=== PATIENT | female | born 2000 | race Caucasian/White ===

== ENCOUNTER 2022-05-02 17:03 | Emergency (ER) | payer OTHER ==
[~2022-05-02] VITALS: Ht 170.2 cm; Wt 87.0 kg
[2022-05-02 19:46] LABS: CHLORIDE 107 mEq/L (98-107)
[2022-05-02 19:49] LABS: BASOPHILS % 0.5 % (0.0-2.0); EOSINOPHILS % 0.9 % (0.0-5.0); HEMATOCRIT. 41.8 % (36.0-48.0); HEMOGLOBIN. 13.8 g/dL (12.0-16.0); LYMPHOCYTES % 20.6 % (20.0-50.0); MEAN CORPUSCULAR HEMOGLOBIN 31.4 pg (28.0-32.0); MEAN CORPUSCULAR VOLUME 95.2 fL (81.0-99.0); MEAN PLATELET VOLUME 7.5 fl (7.4-10.4); MONOCYTES % 9.6 % (2.0-8.0); NEUTROPHILS % 68.4 % (40.0-76.0); PLATELET 320 x1000/uL (130-400); RED BLOOD CELL COUNT 4.39 mill/uL (4.2-5.4); RED CELL DISTRIBUTION WIDTH 13.3 % (11.6-14.6)
[2022-05-02 20:09] LABS: B-HCG QUANTITATIVE 31711 mIU/mL (<3)
[2022-05-02 20:24] LABS: CLARITY URINE CLEAR (CLEAR); COLOR URINE YELLOW (YELLOW); KETONES URINE NEGATIVE (NEGATIVE); LEUKOCYTE ESTERASE URINE NEGATIVE (NEGATIVE); NITRITE URINE NEGATIVE (NEGATIVE); OCCULT BLOOD URINE TRACE (NEGATIVE); PH URINE 6.5 (4.5-8.0); PROTEIN URINE NEGATIVE (NEGATIVE)
[2022-05-02 22:30] VITALS: BP 140/75
== END 2022-05-02 22:36 | disposition home or self-care (01) ==
LOC: ER 17:03
DX: O20.0 Threatened abortion (principal); Z3A.01 Less than 8 weeks gestation of pregnancy; Z88.0 Allergy status to penicillin; O34.81 Maternal care for other abnormalities of pelvic organs, first trimester; N83.291 Other ovarian cyst, right side
CPT/HCPCS: 36415; 76801; 80048; 81003; 81025; 84702; 85025; 86850; 86900; 99284

== ENCOUNTER 2022-05-18 23:51 | Emergency (ER) | payer OTHER ==
[~2022-05-18] VITALS: Ht 170.2 cm; Wt 87.0 kg
[2022-05-19 01:26] LABS: BASOPHILS % 0.3 % (0.0-2.0); EOSINOPHILS % 1.5 % (0.0-5.0); HEMATOCRIT. 41.4 % (36.0-48.0); HEMOGLOBIN. 14.3 g/dL (12.0-16.0); LYMPHOCYTES % 12.6 % (20.0-50.0); MEAN CORPUSCULAR HEMOGLOBIN 32.3 pg (28.0-32.0); MEAN CORPUSCULAR VOLUME 93.7 fL (81.0-99.0); MEAN PLATELET VOLUME 7.6 fl (7.4-10.4); NEUTROPHILS % 74.6 % (40.0-76.0); PLATELET 297 x1000/uL (130-400); RED BLOOD CELL COUNT 4.42 mill/uL (4.2-5.4); RED CELL DISTRIBUTION WIDTH 13.1 % (11.6-14.6)
[2022-05-19 01:35] LABS: CHLORIDE 105 mEq/L (98-107)
[2022-05-19 02:00] LABS: B-HCG QUANTITATIVE 66891 mIU/mL (<3)
[2022-05-19 02:09] LABS: CLARITY URINE CLEAR (CLEAR); COLOR URINE YELLOW (YELLOW); KETONES URINE NEGATIVE (NEGATIVE); LEUKOCYTE ESTERASE URINE NEGATIVE (NEGATIVE); NITRITE URINE NEGATIVE (NEGATIVE); OCCULT BLOOD URINE NEGATIVE (NEGATIVE); PH URINE 6.5 (4.5-8.0); PROTEIN URINE NEGATIVE (NEGATIVE); SPECIFIC GRAVITY URINE 1.009 (1.005-1.030)
[2022-05-19] MEDS ORDERED: RHO(D) IMMUNE GLOBULIN 300 MCG/SYR IM ONE (02:30)
[2022-05-19 04:35] VITALS: BP 123/78
== END 2022-05-19 04:35 | disposition home or self-care (01) ==
LOC: ER 23:51
DX: O26.851 Spotting complicating pregnancy, first trimester (principal); O36.0910 Maternal care for other rhesus isoimmunization, first trimester, not applicable or unspecified; O99.611 Diseases of the digestive system complicating pregnancy, first trimester; K45.8 Other specified abdominal hernia without obstruction or gangrene; Z3A.08 8 weeks gestation of pregnancy
CPT/HCPCS: 36415; 76801; 80048; 81003; 84702; 85025; 86850; 86900; 90384; 96372; 99285; J2791

== ENCOUNTER 2023-05-17 21:18 | Emergency (ER) | payer OTHER ==
[~2023-05-17] VITALS: Ht 170.2 cm; Wt 95.0 kg
[2023-05-17 21:28] VITALS: O2SAT 100
[2023-05-17] MEDS ORDERED: IBUPROFEN 600MG TABLET PO ONE (22:45)
[2023-05-17 22:59] LABS: BASOPHILS % 0.7 % (0.0-2.0); HEMATOCRIT. 39.2 % (36.0-48.0); HEMOGLOBIN. 13.6 g/dL (12.0-16.0); LYMPHOCYTES % 36.9 % (20.0-50.0); MEAN CORPUSCULAR HEMOGLOBIN 31.2 pg (28.0-32.0); MEAN CORPUSCULAR VOLUME 89.7 fL (81.0-99.0); MEAN PLATELET VOLUME 7.6 fl (7.4-10.4); MONOCYTES % 8.6 % (2.0-8.0); NEUTROPHILS % 51.8 % (40.0-76.0); PLATELET 333 x1000/uL (130-400); RED BLOOD CELL COUNT 4.37 mill/uL (4.2-5.4); RED CELL DISTRIBUTION WIDTH 13.7 % (11.6-14.6)
[2023-05-17 23:03] LABS: CHLORIDE 106 mEq/L (98-107)
[2023-05-17 23:50] VITALS: BP 118/80; PULSE 80; RESP 21; TEMP 98.4
== END 2023-05-17 23:51 | disposition home or self-care (01) ==
LOC: ER 21:18
DX: R07.89 Other chest pain (principal); Z98.890 Other specified postprocedural states; Z88.0 Allergy status to penicillin
CPT/HCPCS: 36415; 71045; 80053; 84484; 85025; 99284

== ENCOUNTER 2023-11-25 19:37 | Emergency (ER) | payer MEDICAID, OTHER ==
[~2023-11-25] VITALS: Ht 170.2 cm; Wt 104.0 kg
[2023-11-25 20:44] VITALS: TEMP 98; O2SAT 100
[2023-11-25] MEDS: SODIUM CHLORIDE 0.9% 1,000 ML IV ONE (21:19)
[2023-11-25] MEDS: METOCLOPRAMIDE HCL 10MG/2ML VIAL IV ONE (21:20)
[2023-11-25 21:37] LABS: CLARITY URINE CLOUDY (CLEAR); COLOR URINE YELLOW (YELLOW); GLUCOSE URINE NEGATIVE (NEGATIVE); KETONES URINE TRACE (NEGATIVE); LEUKOCYTE ESTERASE URINE NEGATIVE (NEGATIVE); NITRITE URINE NEGATIVE (NEGATIVE); OCCULT BLOOD URINE NEGATIVE (NEGATIVE); PROTEIN URINE NEGATIVE (NEGATIVE); SPECIFIC GRAVITY URINE 1.026 (1.005-1.030); UROBILINOGEN URINE 0.2 E.U./dL (0.2-1.0)
[2023-11-25 21:42] LABS: BASOPHILS % 0.5 % (0.0-2.0); EOSINOPHILS % 0.9 % (0.0-5.0); HEMATOCRIT. 40.9 % (36.0-48.0); HEMOGLOBIN. 14.4 g/dL (12.0-16.0); LYMPHOCYTES % 31.2 % (20.0-50.0); MEAN CORPUSCULAR HEMOGLOBIN 31.7 pg (28.0-32.0); MEAN CORPUSCULAR HGB CONC 35.3 g/dL (31.0-37.0); MEAN CORPUSCULAR VOLUME 89.7 fL (81.0-99.0); MEAN PLATELET VOLUME 7.7 fl (7.4-10.4); MONOCYTES % 9.3 % (2.0-8.0); NEUTROPHILS % 58.1 % (40.0-76.0); PLATELET 340 x1000/uL (130-400); RED BLOOD CELL COUNT 4.55 mill/uL (4.2-5.4); RED CELL DISTRIBUTION WIDTH 13.4 % (11.6-14.6); WHITE BLOOD COUNT 10.7 x1000/uL (4.5-11.0)
[2023-11-25 21:53] LABS: BACTERIA URINE 1+; RBC URINE 0-2 /hpf (0-2); SQUAMOUS EPITHELIAL CELL URINE 2+ /lpf (RARE/1+); WBC URINE 0-2 /hpf (0-2)
[2023-11-25 22:06] LABS: ALANINE AMINOTRANSFERASE 21 IU/L (10-49); ALBUMIN 4.4 g/dL (3.2-4.8); ASPARTATE AMINOTRANSFERASE 20 IU/L (<34); B-HCG QUANTITATIVE 103385 mIU/mL (<3); BILIRUBIN TOTAL 0.3 mg/dL (0.1-1.0); CALCIUM 9.1 mg/dL (8.7-10.4); CARBON DIOXIDE 21 mEq/L (21-32); CHLORIDE 104 mEq/L (98-107); CREATININE 0.7 mg/dL (0.6-1.0); GLUCOSE 87 mg/dL (70-105); POTASSIUM 3.7 mEq/L (3.5-5.1); PROTEIN TOTAL 7.6 g/dL (6.0-8.3); SODIUM 135 mEq/L (136-145); UREA NITROGEN BLOOD 14 mg/dL (9-23)
[2023-11-26 00:13] VITALS: BP 112/65; PULSE 80; RESP 16
== END 2023-11-26 00:14 | disposition home or self-care (01) ==
LOC: ER 19:37
DX: O21.0 Mild hyperemesis gravidarum (principal); O99.611 Diseases of the digestive system complicating pregnancy, first trimester; K29.60 Other gastritis without bleeding; G43.909 Migraine, unspecified, not intractable, without status migrainosus; Z3A.11 11 weeks gestation of pregnancy; Z98.890 Other specified postprocedural states; Z88.0 Allergy status to penicillin
CPT/HCPCS: 80053; 81003; 84702; 85025; 36415; 76801; 76817; 96361; 96374; 99285; J2765; J7030; Z7610 ×2